=== PATIENT | female | born 1945 | race Caucasian/White ===

== ENCOUNTER 2021-09-07 08:59 | Day surgery (SDC) | payer OTHER ==
[2021-09-07] MEDS ORDERED: dexAMETHasone 4 MG/ML VIAL ONE (09:38)
[2021-09-07] MEDS ORDERED: LIDOCAINE 1% MPF 5 ML VIAL ONE (09:38)
[2021-09-07] MEDS ORDERED: FENTANYL CITR 100 MCG/2 ML ONE (09:38)
[2021-09-07] MEDS ORDERED: MIDAZOLAM HCL 2 MG/2 ML INJ ONE (09:38)
[2021-09-07] MEDS ORDERED: ROPLVACAINE HCL 40 ML ONE (09:39)
[2021-09-07] MEDS ORDERED: Ringers Lactate 1,000 ML IV ONE (09:44)
[2021-09-07] MEDS ORDERED: LIDOCAINE 2% MPF 5 ML VIAL ONE (10:47)
[2021-09-07] MEDS ORDERED: propofoL 200 MG/20 ML VIAL IV ONE (10:47)
[2021-09-07] MEDS ORDERED: ONDANSETRON 4 MG/2 ML VIAL ONE (10:48)
[2021-09-07] MEDS ORDERED: CEFAZOLIN SODIUM 1 GM/VIAL ONE (11:51)
[2021-09-07] MEDS ORDERED: KETOROLAC 30 MG/ML INJ ONE (12:36)
--- NOTE | 2021-09-07 13:39 | RAD REPORT ---
EXAM DESCRIPTION: RAD - Wrist Right 2 View - 09/07/2021 1:32 pm CLINICAL HISTORY: Radial fracture FINDINGS: Plate and screws affix a radial fracture. Fourteen intraoperative fluoroscopic spot images obtained. Fluoroscopy time 1.6 minutes The surgery performed by Dr. Yan
[2021-09-07 14:27] VITALS: BP 155/70; TEMP 98.3; O2SAT 96
--- NOTE | 2021-09-08 00:46 | OP ---
Date of Procedure: 09/07/2021 Surgeon: Casey Yan MD Preoperative Diagnosis: Right distal radius and ulna fracture which is displaced. Postoperative Diagnosis: Right distal radius and ulna fracture which is displaced. Procedure: Open reduction and internal fixation of right distal radius fracture. Estimated Blood Loss: Less than 10 cc. Complications: There were no complications. Specimens: No pathology specimen sent. Indications For Operation: Ms. Connor is a 76-year-old female who is unfortunately quite frail, f alling, and injuring her right upper extremity. She had a highly displaced distal radius and ulna fr acture which essentially went together in a radial direction. She also has a right proximal humerus fracture which is essentially crushed. She was seen in my office where she was found to be neurovasc ularly intact. There was a very small abrasion on the dorsal ulnar aspect of the wrist, however, not associated with any fracture or open fracture. Review of x-rays was done and a great deal of though t was placed to proceed with shoulder operation, which would probably include a reverse shoulder arth roplasty versus simply addressing the radius to allow her to get a more functional hand treating the shoulder nonoperatively. She reviewed her options and given her age and frailty, elects for open red uction and internal fixation of distal radius to avoid probable use of a long-arm cast and agrees to proceed. She does not want any operative intervention of her shoulder and the ulna we will treat wit hout operative intervention as well. Description Of Procedure: The patient was taken to the operating room and placed in supine position. General anesthesia was obtained by staff. Following this, a well-padded tourniquet was placed on t he superior right arm. Right upper extremity was then prepped and draped in usual sterile fashion be ing very careful with manipulation of the shoulder. After this, the arm was then elevated, but not e xsanguinated, tourniquet was raised. A standard volar approach was then taken down carefully through skin and soft tissues. Meticulous hemostasis being maintained using bipolar electrocautery. This l abilio down to the flexor carpi radialis, which was retracted radialward to protect the radial artery. The sheath was then exploited and the tendon and muscle belly of the flexor pollicis longus was enco untered. It was retracted ulnarward to protect the median nerve. The pronator quadratus was then di vided in its mid substance and elevated off the volar surface of the radius using a wooden handle pedro vator. The fracture itself was found to be quite a bit shortened and displaced. A combination of Fr eer elevator as well as manual techniques were used to bring the distal radius in a more anatomic pos ition; however, it was not completely anatomic. Decision was made to place the distal portion of the plate using a nonlocking screw as well as locking pegs to stabilize the plate onto the distal segmen t. The nonlocked screw was then removed and placed with a locking peg. The radial styloid pegs were not placed at this time. The plate was able to be used as a good point to allow for reduction of th e distal radius upon the end of the radial shaft. As this was held in place, the two screws were the n placed in the plate generating a good reduction of the distal radius. After this, the remaining st ylet pegs were then placed. It was observed under biplanar C-arm radiography and appears to have a g ood reduction. It was gently irrigated and the skin was closed using nylon sutures. The patient has been placed in a non adhering dressing as well as a bulky dressing using 4x4s, soft roll, Orthoglass was then used volarly, and affixed using Galileo wrap. Following this, the patient was then awakened, t aken to recovery room in good condition. The decision making for this procedure was somewhat difficu lt, will need a long-arm cast for this lady, but will be able to give her use of her elbow as well as her fingers to allow for better rehabilitation of this nonoperatively treated shoulder. There were no complications. SE/MODL Voice ID: [id number] Report ID: [id number]
== END 2021-09-07 14:20 | disposition home or self-care (01) ==
LOC: OR 08:59
PROVIDERS: ATTEND Orthopaedic Surgery
PROC: 0PSH04Z Reposition Right Radius with Internal Fixation Device, Open Approach (ICD-10-PCS; principal; 2021-09-07 11:30)
DX: S52.531A Colles' fracture of right radius, initial encounter for closed fracture (principal); M25.531 Pain in right wrist; M25.511 Pain in right shoulder; Z20.822 Contact with and (suspected) exposure to COVID-19
CPT/HCPCS: 73100; 25607; U0003; J2704; J1100; J2250; J3010; J2795; J7120; J2405; J0690